=== PATIENT | female | born 1975 | race Asian ===

== ENCOUNTER 2024-12-22 22:30 | Inpatient (IN) | payer OTHER, SELFPAY ==
[2024-12-22 22:31] VITALS: BMI 17.5
[2024-12-22 22:50] VITALS: BP 118/71; PULSE 91; RESP 20; TEMP 37.1; O2SAT 99
--- NOTE | 2024-12-22 23:05 | EKG_ITS ---
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
--- NOTE | 2024-12-22 23:05 | XR_ITS ---
Examination: CT brain head without contrast. 2-D sagittal coronal reconstructions Date and time of exam:December 22, 2024 1111 hrs. Indications: Dizziness and nausea episodes beginning 2 days ago CTDI: vol (mGy):44.2 DLP: (mGycm):859 Technique: Multiple CT axial sections of the brain have been obtained, 5 mm slice thickness. Contrast has not been administered. 2-D sagittal, coronal reconstructions have been obtained Low dose protocols were performed. One or more of the following dose reduction techniques were used; automated exposure control, adjustment of the mA and/or KV according to patient size, use of iterative reconstruction technique. Findings: No significant ventricular enlargement. Intra-axial or extra-axial hemorrhage density is not seen. No mass effect or midline shift Basal cisterns are not remarkable. Fourth ventricle is midline. Cranial vault intact. Impression: Negative for acute hemorrhage, mass effect or midline shift Advise clinical correlation and follow-up accordingly
--- NOTE | 2024-12-22 23:05 | XR_ITS ---
Examination: PA lateral chest 2 views Technique: Upright PA lateral chest 2 views Exam date and time: December 22, 2024 at 1110 hrs. Indications: Chest pain today Findings: Normal heart size Lungs are clear. The osseous structures are intact Impression: No active disease
--- NOTE | 2024-12-22 23:05 | PD.EDRME ---
Rapid Medical Screening Exam RME Arrival date/time: 12/22/24 22:30 49-year-old female past medical history of anemia presents emergency department complaining of dizziness, nausea, and shortness of breath. Chief Complaint: Dizziness Time Seen by Provider: 12/22/24 22:34 Vital signs: Vital Signs Temperature 98.8 F 12/22/24 22:50 Pulse Rate 91 12/22/24 22:50 Respiratory Rate 20 12/22/24 22:50 Blood Pressure 118/71 12/22/24 22:50 Pulse Oximetry (%) 99 12/22/24 22:50 Oxygen Delivery Method Room Air 12/22/24 22:50 Vital signs reviewed by provider: Yes
[2024-12-22 23:30] LABS: Basophils # (Auto) 0.1 Thou/mm3 (0.0-0.2); Basophils % (Auto) 2 % (0-2.5); Eosinophils # (Auto) 0.1 Thou/mm3 (0.0-0.5); Eosinophils % (Auto) 1 % (0-10); Immature Granulocytes % (Auto) 0 % (0-0); Immature Granulocytes Auto 0.01 Thou/mm3 (0.00-0.00); Lymphocytes # (Auto) 1.2 Thou/mm3 (1.0-4.8); Lymphocytes % (Auto) 31 % (10-50); Mean Corpuscular HGB Conc 25.7 g/dl (31.0-37.0); Mean Corpuscular Volume 51 fL (80-100); Monocytes # (Auto) 0.4 Thou/mm3 (0.0-0.8); Monocytes % (Auto) 11 % (0-12); Neutrophils # (Auto) 2.2 Thou/mm3 (1.8-7.7); Neutrophils % (Auto) 55 % (37-80); Nucleated Red Blood Cell % 0 /100 WBC (0); Platelet Count 542 Thou/mm3 (140-440); RDW Standard Deviation 41.5 fL (36.4-46.3); Red Blood Count 4.15 Miln/mm3 (4.00-5.20)
[2024-12-22 23:43] LABS: B-Type Natriuretic Peptide 29 pg/mL (0-100); Partial Thromboplastin Time 22.2 Seconds (22.0-36.0); Prothrombin Time 11.4 Seconds (9.0-12.2)
[2024-12-22 23:44] LABS: Hemoglobin 5.4 g/dL (12.0-16.0)
[2024-12-22 23:45] LABS: Alanine Aminotransferase 7 U/L (10-49); Albumin/Globulin Ratio 1.6 (1.2-2.2); Alkaline Phosphatase 69 U/L (46-116); Anion Gap 9 (7-16); Aspartate Amino Transferase 15 U/L (0-34); BUN/Creatinine Ratio 16 Ratio (12-20); Bilirubin,Total 0.4 mg/dL (0.3-1.2); Blood Urea Nitrogen 14 mg/dL (9-23); Calcium 9.3 mg/dL (8.3-10.6); Calcium (Corrected) 9.3 mg/dL (8.5-10.1); Carbon Dioxide 25.1 mMol/L (20.0-31.0); Chloride 106 mMol/L (98-107); Creatinine (Component) 0.9 mg/dL (0.6-1.3); Globulin 3.2 gm/dL (2.3-3.5); Glucose 107 mg/dL (74-106); Magnesium 2.2 mg/dL (1.6-2.6); Osmolality,Calculated 279 (275-295); Potassium 3.7 mMol/L (3.4-5.1); Sodium 140 mMol/L (136-145); Total Protein 8.2 gm/dL (5.7-8.2); Troponin I < 0.002 ng/mL (0.0-0.045); eGFR > 60 See Note
[2024-12-23] VITALS (39 sets, daily range): BP systolic 107–139; BP diastolic 50–93; PULSE 63–90; RESP 14–25; TEMP 36.1–37.1; O2SAT 98–100; BMI 18.5
[2024-12-23 00:48] LABS: Collection Type, Urine Clean Catch; Squamous Epithelial Cell,Urine 0 /hpf (0-5)
[2024-12-23 00:51] LABS: Bilirubin,Urine Negative (Negative); Blood,Urine 3+ (Negative); Budding Yeast,Urine Present; Clarity,Urine Clear (Clear/Hazy); Color,Urine Yellow (Lt Yel-Yel); Glucose, Urine Negative (Negative); Ketones,Urine Negative (Negative); Leukocyte Esterase,Urine Negative (Negative); Nitrite,Urine Negative (Negative); Protein,Urine 1+ (Neg - Trace); RBC,Urine 371 /hpf (0-3); Specific Gravity,Urine 1.028 (1.001-1.035); WBC,Urine 9 /hpf (0-5)
--- NOTE | 2024-12-23 00:52 | PD.EDDIZZY ---
ED Dizzyness RME/HPI General Chief Complaint: Dizziness Stated Complaint: DIZZINESS AND NAUSEA X 2DAYS Time Seen by Provider: 12/22/24 22:34 Arrival date/time: 12/22/24 22:30 RME / HPI RME / HPI Narrative: 12/22/24 22:30 49-year-old female past medical history of anemia presents emergency department complaining of dizziness, nausea, and shortness of breath. Dr. Reddy?s Main ED Evaluation: 49yo female with a history of anemia, previous blood transfusions presents to the ED for a chief complaint of dizziness. Patient states she was feeling dizzy and lightheaded today, reporting she feels like this every so often since 2004 before or after her period. She denies any hematemesis, rectal bleeding, vomiting or any other associated symptoms. Denies any falls or injuries. No known allergies. Related Data Allergies Allergy/AdvReac Type Severity Reaction Status Date / Time NKA* Allergy Uncoded 03/19/17 15:30 Review of Systems Review of Systems Systems Reviewed: All systems reviewed, normal except as documented ED Exam Narrative Physical exam: GENERAL APPEARANCE: alert and oriented x 4, well-developed, well-nourished, no acute distress VITALS: All vitals were reviewed and the pulse ox is 100% on room air, which is normal according to my interpretation. HEENT: Normocephalic, atraumatic; pale conjunctiva, pupils equal, round, reactive to light; EOMI; mucous membranes pale, moist; oropharynx clear NECK: Supple LUNGS: CTABL; no wheezes, no rales, no rhonchi HEART: Regular rate, regular rhythm; normal S1, S2; no murmurs ABDOMEN: non distended; normal BS; soft, no tenderness, no guarding, no rebound; no masses, no organomegaly, no hernia BACK: no CVA tenderness EXTREMITIES: atraumatic; no edema NEUROLOGIC: awake; alert and oriented x4; cranial nerves II-XII grossly intact; no focal sensory or motor deficits PSYCHIATRIC: appropriate mood and affect SKIN: warm, dry, pallor; no rashes Course Course Course Narrative: CXR is ordered for determining the etiology of dizziness. Quality Measures none Orders Category Date Time Status Admit to Inpatient Status Routine Admission 12/23/24 02:22 Active Patient Condition Routine Admission 12/23/24 02:22 Ordered Activity as Tolerated Routine Care 12/23/24 02:22 Ordered EKG (ED ONLY) *Do not use* NOW Care 12/22/24 23:05 Completed Notify provider NEEDED Care 12/23/24 02:22 Active Obtain weight X1 Care 12/23/24 02:22 Active Sequential Compression Device QSHIFT Care 12/23/24 02:22 Active Vital Signs, Non-Routine Q4H Care 12/23/24 02:30 Ordered Vital Signs, Non-Routine Q4H Care 12/23/24 06:30 Ordered Vital Signs, Non-Routine Q4H Care 12/23/24 10:30 Ordered Vital Signs, Non-Routine Q4H Care 12/23/24 14:30 Ordered Vital Signs, Non-Routine Q4H Care 12/23/24 18:30 Ordered Vital Signs, Non-Routine Q4H Care 12/23/24 22:30 Ordered Consult to Obstetrics Stat Cons 12/23/24 02:25 Ordered Diet Regular Diet 12/23/[address] head/brain wo con Stat Exams 12/22/24 23:05 Completed EKG (ED Only) Stat Exams 12/22/24 23:05 Draft US pelvic complete Stat Exams 12/23/24 02:26 Ordered XR chest 2V Stat Exams 12/22/24 23:05 Completed A1C [Glycohemoglobin w (eAG)] AM DRAW Lab 12/23/24 05:00 Ordered B-Type Natriuretic Peptide Stat Lab 12/22/24 23:22 Completed Beta HCG,Quantitative AM DRAW Lab 12/23/24 05:00 Ordered CBC AM DRAW Lab 12/23/24 05:00 Ordered CBC AM DRAW Lab 12/24/24 05:00 Ordered CBC AM DRAW Lab 12/25/24 05:00 Ordered CBC Stat Lab 12/22/24 23:22 Completed Comprehensive Metabolic Panel AM DRAW Lab 12/23/24 05:00 Ordered Comprehensive Metabolic Panel AM DRAW Lab 12/24/24 05:00 Ordered Comprehensive Metabolic Panel AM DRAW Lab 12/25/24 05:00 Ordered Comprehensive Metabolic Panel Stat Lab 12/22/24 23:22 Completed Drug Screen,Urine Stat Lab 12/23/24 00:02 Completed Hgb and Hct Post-Transfusion Routine Lab 12/23/24 02:24 Ordered Lipid Panel AM DRAW Lab 12/23/24 05:00 Ordered Magnesium AM DRAW Lab 12/23/24 05:00 Ordered Magnesium Stat Lab 12/22/24 23:22 Completed Partial Thromboplastin Time AM DRAW Lab 12/24/24 05:00 Ordered Partial Thromboplastin Time Stat Lab 12/22/24 23:22 Completed Phosphorous AM DRAW Lab 12/23/24 05:00 Ordered Prothrombin Time with INR AM DRAW Lab 12/24/24 05:00 Ordered Prothrombin Time with INR Stat Lab 12/22/24 23:22 Completed Thyroid Stimulating Hormone AM DRAW Lab 12/23/24 05:00 Ordered Troponin I Stat Lab 12/22/24 23:22 Completed Type and Screen Stat Lab 12/23/24 01:00 Results Urinalysis Stat Lab 12/23/24 00:02 Completed rbc [Red Blood Cells] Stat Lab 12/23/24 01:00 Results Acetaminophen Tab [Tylenol Tab] Med 12/23/24 02:22 Active 650 mg PO Q6H PRN Meclizine HCl [Antivert] Med 12/23/24 01:13 Discontinued 25 mg PO X1 ONE Ondansetron Inj [Zofran Inj] Med 12/23/24 02:22 Active 4 mg IV Q6H PRN Pantoprazole [Protonix] Med 12/23/24 09:00 Active 40 mg PO QDAY Code Status Routine Oth 12/23/24 02:22 Ordered Vital Signs Vital signs: Vital Signs Temperature 98.8 F 12/22/24 22:50 Pulse Rate 91 12/22/24 22:50 Respiratory Rate 20 12/22/24 22:50 Blood Pressure 118/71 12/22/24 22:50 Pulse Oximetry (%) 99 12/22/24 22:50 Oxygen Delivery Method Room Air 12/22/24 22:50 Dizziness MDM Narrative MDM Narrative:: Scribe Attestation: 12/23/24 - Litzy, Jalyn Horton am scribing for and in the presence of Dr. Reddy. 0118: Discussed case with [Dr. Lynch, attending Dr. Bass] from Hospitalist service regarding admission. Discussed patients ED course, exam findings, labs, and radiology results. The Hospitalist will come and evaluate the patient. 0205: The hospitalist requests OB to admit the patient. 0209: Discussed case with Dr. Frank from [facility] regarding consultation. Discussed patients ED course, exam findings, labs, and radiology results. States to admit the patient to the hospitalist and she will consult. As of 225, OB and the Hospitalist service are attempting to figure out who will admit the patient. 0236: Dr. Bass accepts the patient for admission. Patient data External records reviewed:: [facility] previous records (Per chart review, patient has no previous ED visits or admissions to this facility.) Clinical information provided by:: patient Social determinants that could affect healthcare access:: none Patient has the following chronic illnesses:: anemia How is presenting disease/condition affected by chronic disease/condition?: caused by Evaluation data The following diagnostics were reviewed and interpreted by me:: lab results Lab and/or radiology exams considered but not ordered:: none Interpretation Summary: WBC count is normal, HnH is low at 5.4/21.0, Platelets are 542, PT and INR are normal, PTT is normal, CMP is normal, UDS is negative, according to my interpretation. EKG done at 2327, NSR, rate of 80, normal axis, inverted T-waves in V1 and V2, no STEMI, according to my interpretation. --------- [place] [facility] Report Signed Patient: ILSA LOTT Record#: [id number] Birthdate: 1975 Age/Sex: 49 / F Location: [facility] Attending Dr: Ordering Physician: Villa Romano (FNP) Date of Service: 12/22/24 Procedure(s): XR chest 2V Accession Number(s): [id number] cc: Will Castaneda MD; Temporary Provider,ED ; Villa Romano (FNP)~ Examination: PA lateral chest 2 views Technique: Upright PA lateral chest 2 views Exam date and time: December 22, 2024 at 1110 hrs. Indications: Chest pain today Findings: Normal heart size Lungs are clear. The osseous structures are intact Impression: No active disease Dictated By: Will Castaneda MD Signed By: <Electronically signed by Will Castaneda MD in OV> 12/22/24 2359 [facility] Signed Patient: ILSA LOTT Record#: [id number] Birthdate: 1975 Age/Sex: 49 / F Location: [facility] Attending Dr: Ordering Physician: Kalyani GROSS)Villa Date of Service: 12/22/24 Procedure(s): CT head/brain wo con Accession Number(s): [id number] cc: Will Castaneda MD; Temporary Provider,ED ; Kalyani Persaud ([employer]INEER[employer] INSPECTION ASSISTANT),Villa WEBER~ Examination: CT brain head without contrast. 2-D sagittal coronal reconstructions Date and time of exam:December 22, 2024 1111 hrs. Indications: Dizziness and nausea episodes beginning 2 days ago CTDI: vol (mGy):44.2 DLP: (mGycm):859 Technique: Multiple CT axial sections of the brain have been obtained, 5 mm slice thickness. Contrast has not been administered. 2-D sagittal, coronal reconstructions have been obtained Low dose protocols were performed. One or more of the following dose reduction techniques were used; automated exposure control, adjustment of the mA and/or KV according to patient size, use of iterative reconstruction technique. Findings: No significant ventricular enlargement. Intra-axial or extra-axial hemorrhage density is not seen. No mass effect or midline shift Basal cisterns are not remarkable. Fourth ventricle is midline. Cranial vault intact. Impression: Negative for acute hemorrhage, mass effect or midline shift Advise clinical correlation and follow-up accordingly Dictated By: Will Castaneda MD Signed By: <Electronically signed by Will Castaneda MD in OV> 12/22/24 6550 Medications / Prescriptions Medications or Prescriptions considered but not ordered:: none Medication administrations:: Medication Administration History Acetaminophen (Acetaminophen 325 Mg Tablet) 650 mg PO Q6H PRN PRN Reason: Fever >100 or pain 1-3 Stop: 01/22/25 02:21 Ondansetron HCl (Ondansetron Inj 2 Mg/Ml Inj 2 Ml) 4 mg IV Q6H PRN; Protocol PRN Reason: NAUSEA OR VOMITING Stop: 01/22/25 02:21 Pantoprazole Sodium (Pantoprazole 40 Mg Tablet) 40 mg PO QDAY KELBY Stop: 01/22/25 08:59 Discontinued Medications Meclizine HCl (Meclizine Hcl 25 Mg Tablet) 25 mg PO X1 ONE Stop: 12/23/24 01:14 Last Admin: 12/23/24 01:17 Dose: Not Given Documented By: TC Non-Admin Reason: Discontinued PRBCs ordered. Consultations Consultation(s) initiated? (list below): Yes Consultation #1 (Physician, Specialty, Details): See MDM narrative. Diagnosis Dizziness Differential Diagnosis: other (iron deficiency anemia, hemolytic anemia, hemorrhage anemia, sideroblastic anemia) Most likely diagnosis given after review of the tests above:: symptomatic anemia Admission Indicated Admission indicated?: indicated Admission Request Was there a request for admission?: Yes Admission Attestation Admission request attestation: Discussed case with [] from Hospitalist service regarding admission. Discussed patients ED course, exam findings, labs, and radiology results. The Hospitalist [agrees,declines] to accept the patient for admission. Disposition Plan Disposition Plan: Admit Discharge Plan Plan Patient Disposition: Admit Acute Care w/in Hospital Prescriptions/Referrals Referrals: No Primary/Family,Physician [Primary Care Provider] - In 1 week Problem List Clinical Impression: Symptomatic anemia Patient/Caregiver Discharge Instructions Print Language: Khmer Stand Alone Forms: [facility] Award Info., Patient Portal Info Letter
[2024-12-23 01:00] LABS: Amphetamine/Methamp Scrn,U Negative (Negative); Barbiturate Screen,Urine Negative (Negative); Benzodiazepines Screen,Urine Negative (Negative); Benzoylecgonine Screen, Ur Negative (Negative); Fentanyl Screen,Urine Negative (Negative); Opiate Screen,Urine Negative (Negative); THC Screen,Urine Negative (Negative)
--- NOTE | 2024-12-23 02:26 | XR_ITS ---
Examination: Pelvic ultrasound, transabdominal, complete Technique: Transabdominal ultrasound of the pelvis performed using grayscale imaging Date and time of exam: December 23, 2024 1123 hours INDICATIONS: Vaginal bleeding beginning 3 days ago, patient is anemic requiring blood transfusions FINDINGS: Uterus 12.4 cm endometrium 1.0 cm No uterine mass Right ovary 3.7 cm arterial flow Left ovary removed 2006 IMPRESSION: Diffusely enlarged uterus but no discrete uterine mass
--- NOTE | 2024-12-23 02:28 | ESHP_ITS ---
Documentation for date of: 12/23/24 HPI History of Present Illness History of present illness: Camilo is a 49 y/o female with PMHx of prediabetes, chronic anemia, menorrhagia who comes in evaluation of dizziness, generalized weakness, fatigue. 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 She felt like she was going to pass out, however did not pass out or fall. She started to feel clammy and diaphoretic decided that she needed to get further evaluated. She is felt like this before. She also says that she is currently is on her period in which they last for about 7 days, she goes through about 5 pads a day, and she says she usually passes up blood chunks and clots up till day 3. She currently has used 2 pads today, and says that she is on day 3 of her period. She also says that when she is on her period she does feel similar symptoms to these. She says she does not go to doctors including PCP or an SECURITY ALARM INSTALLER. She says she has good oral intake, and cooks all her meals at home. She denies any recent weight loss. She says that she has been having heavy periods since her teenage years. She denies taking any aspirin, ibuprofen or naproxen and has not taken any ibuprofen in 6 months. She denies having any chest pain, shortness of breath, nausea, vomiting. She says her bowel movements are regular and the last bowel movement she had was brown/green color and it was not black. She denies any recent travel, or sick contacts. She has not gotten blood transfusions before. She says that she has had chronic anemia for a long time. She has not been hospitalized before. Pt denies seeing blood in her urine. She is wondering when she is going to go home. She also denies seeing blood in her urine. She has no other complaints at this time. ED course: She arrived to the ED with a temperature of 98.8, heart rate of 91, respiratory of 20, blood pressure 118/71, saturating 99% on room air. She came in with a white count of 4, hemoglobin 5.4, hematocrit of 21, platelets of 542, sodium of 140, potassium 3.7, bicarb of 25, BUN/creatinine 14 and 0.9 respectively, magnesium 2.2, troponin negative x 1, ALT 15 and 7 respectively, coag panel negative. UA showed 371 RBCs, +3 blood, 9 white cells, budding yeast. U tox was negative. 2 PRBCs were ordered. Medicine was consulted and patient was admitted to the floors Past medical history: As above Surgical history: (says she had a cyst before on her ovary, and is still there) Allergies: Aspirin gets hives Medicines: Does not take any medicines Family history: History of hypertension, diabetes, stroke, father of stroke around age 60s, mother of heart attack a couple years ago. Brother of lung cancer. Social history: Born in [facility], came here in 1983. 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 Has boyfriend, has kids as well. Cooks all her meals at home which include chicken fish and red meat. She does not exercise much. No smoking history, has never been a heavy drinker, no oral or IV drug use. Does not take aspirin, NSAIDs. Takes Tums for acid reflux occasionally Review of Systems Review of Systems Narrative Review of Systems: Constitutional: No fever, chills, positive fatigue, positive weakness, no weight loss HEENT: No eye pain, vision loss, ear pain, hearing loss, dysphagia, Cardiovascular: No chest pain, palpitations, edema, pain with walking Respiratory: No cough, shortness of breath, wheezing GI: No NVD, abdominal pain, constipation, blood in stool, loss of appetite, heartburn Extremities: No presence of pitting edema MSK: No back pain, joint pain, joint swelling Neuro: Positive dizziness, no numbness, headaches, seizures, tremors, no syncope Psych: No anxiety, depression Exam Vital Signs Temp Pulse Resp BP Pulse Ox O2 Del Method 98.6 F 90 17 119/80 100 Room Air 12/23/24 02:19 12/23/24 02:19 12/23/24 02:19 12/23/24 02:19 12/23/24 02:19 12/23/24 02:19 Narrative Exam General: AAOx3, NAD, anorexic female, pleasant HEENT: Moist mucous membranes, conjunctiva pale bilaterally, EOMI, PERRLA, Cardiovascular: S1, S2, radial pulses +2 bilat, RRR Pulmonary: CTAB bilat no cough, no wheezing GI: No tenderness to light or deep palpitation, no guarding, rigidity, rebound tenderness or distension Extremities: No presence of trace or pitting edema in lower extremities bilaterally, dorsalis pedis pulses +2 bilaterally, cap refill less than 2 Neuro: AAOx3, no focal motor or sensory deficits in the UE or LE bilat Psych: Good judgement, thought and behavior. Cooperative Results: Labs 12/22/24 23:22 12/22/24 23:22 Labs: Short CBC 12/22/24 Range/Units 23:22 WBC 4.0 (3.6-11.0) Thou/mm3 Hgb 5.4 L* (12.0-16.0) g/dL Hct 21.0 L* (36.0-46.0) % Plt Count 542 H (140-440) Thou/mm3 BMP 12/22/24 23:22 Sodium 140 Potassium 3.7 Chloride 106 Carbon Dioxide 25.1 BUN 14 Creatinine 0.9 Glucose 107 H Calcium 9.3 Cardiac Enzymes 12/22/24 Range/Units 23:22 Troponin I < 0.002 (0.0-0.045) ng/mL Liver Function 12/22/24 Range/Units 23:22 Total Bilirubin 0.4 (0.3-1.2) mg/dL AST 15 (0-34) U/L ALT 7 L (10-49) U/L Alkaline Phosphatase 69 (46-116) U/L Albumin 5.0 (3.5-5.0) gm/dL Urine 12/23/24 Range/Units 00:02 Urine Color Yellow (Lt Yel-Yel) Urine Clarity Clear (Clear/Hazy) Urine pH 6.0 (5.0-7.0) Ur Specific [place] 1.028 (1.001-1.035) Urine Protein 1+ A (Neg - Trace) Urine Glucose (UA) Negative (Negative) Quality Measures Quality Measures none Medications Home Medications and Allergies Allergies Allergy/AdvReac Type Severity Reaction Status Date / Time NKA* Allergy Uncoded 03/19/17 15:30 Visit Medications Discontinued Medications Meclizine HCl (Meclizine Hcl 25 Mg Tablet) 25 mg PO X1 ONE Stop: 12/23/24 01:14 Last Admin: 12/23/24 01:17 Dose: Not Given Assessment & Plan Plan Assessment Camilo is a 49 y/o female with PMHx of prediabetes, chronic anemia, menorrhagia who is admitted for acute blood loss anemia secondary to menorrhagia. #Symptomatic anemia #Acute blood loss anemia #Chronic microcytic anemia secondary to #Chronic menorrhagia #Hematuria Anemia microcytic in nature, Hgb 5.4, MCV 51 Patient not having hemoptysis, blood in stool Source of bleeding at this time is periods, likely as patient has chronic menorrhagia Patient to get 2 PRBCs now Patient will need further workup for menorrhagia from SECURITY ALARM INSTALLER +3 Blood and RBCs seen in UA, however pt denies having blood in urine Pt is currently on menstrual cycle Plan: ? SECURITY ALARM INSTALLER consulted, appreciate recs ? Ordered additional 1 PRBC ? Follow-up posttransfusion H&H ? PBS ? Iron panel ? Avoid NSAIDs including ibuprofen, aspirin ? Protonix ? SCDs ? Beta-hCG #History of prediabetes Plan: ? Follow-up A1c, TSH and lipid panel #Health Maintenance Disposition: [facility] DVT prophylaxis: SCDs GI prophylaxis: Protonix Diet: Regular CODE STATUS: Full Patient seen and care discussed with my attending physician, Dr. Kali Cottrell, PGY-1 Attending Provider Attestation/Addendum I attest that I was physically present for the evaluation, physical examination, lab and imaging review of the patient with the residents. I discussed the case with the residents and agree with the findings and plans of care as documented above. Patient is a 49 years old female with past medical history of prediabetes, menorrhagia and chronic anemia who presented to the ED with complaint of dizziness and generalized weakness. 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 Patient has always had heavy bleeding during her menstruation since her teenage. She had seen SECURITY ALARM INSTALLER previously and was advised to take OCPs, which she refused as she did not need control. Her last SECURITY ALARM INSTALLER visit was more than 15 years back. She denies trauma, rectal bleeding, black tarry stool, bloody vomit or obvious bleeding from any other source except for her ongoing menstruation. She also denied taking any anticoagulants or antiplatelets. In the ED, patient was found to have normal vitals. Her hemoglobin was 5.4 with hematocrit 21, MCV 51. Urinalysis showed 3+ blood and 371 RBCs but most likely contamination from ongoing vaginal bleed. Head CT was done which is negative for acute hemorrhage, mass effect or midline shift. Chest x-ray did not show any active disease. EKG shows sinus rhythm. SECURITY ALARM INSTALLER was consulted by ED, recommended admission for further evaluation and management. Patient was also ordered 2 units of PRBC by the ED. We will admit the patient for management of acute symptomatic anemia likely secondary to blood loss from chronic menorrhagia. We will obtain posttransfusion H&H, ordered 1 more unit of PRBC, iron panel, folate, beta-hCG, vitamin B12 level. Will start her on oral Protonix. We will also obtain hemoglobin A1c level for her prediabetes. Myriam Bass MD
[2024-12-23 04:14] LABS: Path Review Blood Smear Sent to Pathologist
[2024-12-23 05:33] LABS: Basophils % (Auto) 1 % (0-2.5); Eosinophils # (Auto) 0.1 Thou/mm3 (0.0-0.5); Eosinophils % (Auto) 1 % (0-10); Immature Granulocytes % (Auto) 0 % (0-0); Immature Granulocytes Auto 0.01 Thou/mm3 (0.00-0.00); Lymphocytes # (Auto) 2.1 Thou/mm3 (1.0-4.8); Lymphocytes % (Auto) 43 % (10-50); Mean Corpuscular HGB Conc 26.2 g/dl (31.0-37.0); Mean Corpuscular Hemoglobin 13.7 pg (25.0-35.0); Mean Corpuscular Volume 52 fL (80-100); Monocytes # (Auto) 0.4 Thou/mm3 (0.0-0.8); Monocytes % (Auto) 8 % (0-12); Neutrophils # (Auto) 2.3 Thou/mm3 (1.8-7.7); Neutrophils % (Auto) 48 % (37-80); Nucleated Red Blood Cell % 0 /100 WBC (0); Platelet Count 462 Thou/mm3 (140-440); RDW Standard Deviation 42.4 fL (36.4-46.3); Red Blood Count 3.94 Miln/mm3 (4.00-5.20); White Blood Count 4.8 Thou/mm3 (3.6-11.0)
[2024-12-23 05:54] LABS: Folate 18.09 ng/mL (>5.38); Vitamin B12 439 pg/mL (211-911)
[2024-12-23 05:59] LABS: Hematocrit 20.6 % (36.0-46.0); Hemoglobin 5.4 g/dL (12.0-16.0)
[2024-12-23 06:11] LABS: Alanine Aminotransferase < 7 U/L (10-49); Albumin, Serum 4.3 gm/dL (3.5-5.0); Albumin/Globulin Ratio 1.5 (1.2-2.2); Alkaline Phosphatase 56 U/L (46-116); Anion Gap 10 (7-16); Aspartate Amino Transferase 13 U/L (0-34); BUN/Creatinine Ratio 19 Ratio (12-20); Beta HCG,Quantitative 1 mIU/mL (<5.0); Bilirubin,Total 0.5 mg/dL (0.3-1.2); Blood Urea Nitrogen 13 mg/dL (9-23); Calcium 8.8 mg/dL (8.3-10.6); Calcium (Corrected) 8.8 mg/dL (8.5-10.1); Carbon Dioxide 23.3 mMol/L (20.0-31.0); Cardiac Risk Estimate 3.1 RATIO (3.7-5.6); Chloride 107 mMol/L (98-107); Cholesterol 136 mg/dL (132-200); Creatinine (Component) 0.7 mg/dL (0.6-1.3); Estimated Creatinine Clearance 73.6 mL/min (>60); Globulin 2.9 gm/dL (2.3-3.5); Glucose 100 mg/dL (74-106); HDL Cholesterol 44 mg/dL (40-60); LDL Cholesterol,Calculated 77 mg/dL (0-130); Magnesium 2.2 mg/dL (1.6-2.6); Osmolality,Calculated 279 (275-295); Phosphorous 3.7 mg/dL (2.4-5.1); Potassium 3.9 mMol/L (3.4-5.1); Sodium 140 mMol/L (136-145); Thyroid Stimulating Hormone 2.74 uIU/mL (0.55-4.78); Total Protein 7.2 gm/dL (5.7-8.2); Triglycerides 77 mg/dL (30-150); eGFR > 60 See Note
--- NOTE | 2024-12-23 08:09 | ESCONSULT_ITS ---
RESEARCH ANIMAL ATTENDANT HPI Data of Consult Requesting Physician: Myriam Bass MD Primary Care Provider: Physician No Primary/Family Consult Narrative History of present illness: Camilo is a 49yo with PMHx of prediabetes, chronic anemia, and menorrhagia who presented to ER overnight for dizziness, generalized weakness, and fatigue. 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 She felt like she was going to faint. She started to feel clammy and diaphoretic. She is day 4 of her menses today and notes that it is tapering. She has a history of menorrhagia, has never had it treated. Last saw an OBGYN a few years ago at which point pap and pelvic ultrasound were performed. Her periods occur monthly and last 7 days, first 4 days are very heavy to the point that she will soak through a heavy pad within 30 to 60 minutes. She has flooding episodes. Passes clots and what appears to her to be tissue. Last mammogram 10 years ago(?), has not yet had a colonoscopy. ED course: She arrived to the ED with a temperature of 98.8, heart rate of 91, respiratory of 20, blood pressure 118/71, saturating 99% on room air. She came in with a white count of 4, hemoglobin 5.4, hematocrit of 21, platelets of 542, sodium of 140, potassium 3.7, bicarb of 25, BUN/creatinine 14 and 0.9 respectively, magnesium 2.2, troponin negative x 1, ALT 15 and 7 respectively, coag panel negative. UA showed 371 RBCs, +3 blood, 9 white cells, budding yeast. U tox was negative. 2 pRBCs were ordered. She was admitted by Internal Medicine team for blood transfusion. Past medical history: As above Surgical history: x1 at which time a left ovarian cyst was removed, D&C x1 for ETOP Allergies: Aspirin (hives) Medicines: Does not take any medicines Family history: History of hypertension, diabetes, stroke, father of stroke in his 60s, mother of [place] a couple years ago. Brother of lung cancer. Social history: Born in [facility], came here in 1983. 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 Has boyfriend, has kids as well. Cooks all her meals at home which include chicken fish and red meat. She notes that she has to eat 5 meals a day to avoid being underweight- this is not a recent phenomenon, has always been thin. No smoking history, has never been a heavy drinker, no oral or IV drug use. Does not take aspirin, NSAIDs. cc:: cc: Myriam Bass MD Review of Systems Review of Systems Narrative Review of Systems: Review of Systems Systems Reviewed: All systems reviewed, normal except as documented Constitutional Constitutional: Denies body ache(s), Denies chills, Denies fever(s) and Denies headache(s) ENT Ears, Nose, Mouth, and Throat: Denies headache(s) and Denies vertigo Cardiovascular Cardiovascular: Denies chest pain, Denies palpitations, Denies dyspnea and Denies syncope Respiratory Respiratory: Denies cough, Denies dyspnea Gastrointestinal Gastrointestinal: Denies nausea and Denies vomiting Neurologic Neurologic: Denies convulsions, Denies headache(s), Denies other visual disturbances, Denies syncope and Denies vertigo Meds Home Medications and Allergies Allergies Allergy/AdvReac Type Severity Reaction Status Date / Time No Known Allergies Allergy Unverified 12/23/24 08:33 Exam - RESEARCH ANIMAL ATTENDANT Vital Signs Temp Pulse Resp BP Pulse Ox O2 Del Method 98.1 F 81 16 116/74 99 Room Air 12/23/24 07:35 12/23/24 07:35 12/23/24 07:35 12/23/24 07:35 12/23/24 07:35 12/23/24 07:35 Narrative Exam General: well developed, well nourished, no acute distress, conversant Cardiac: normal heart rate Lungs: breathing without distress Abdomen: soft, non-distended, non-tender, no rebound or guarding, uterus is within the pelvis and not grossly enlarged Extremities: no pain with palpation of calves, no BLE edema RESEARCH ANIMAL ATTENDANT - Results Labs 12/23/24 04:19 12/23/24 04:19 Labs: Short CBC 12/22/24 12/23/24 Range/Units 23:22 04:19 WBC 4.0 4.8 (3.6-11.0) Thou/mm3 Hgb 5.4 L* 5.4 L* (12.0-16.0) g/dL Hct 21.0 L* 20.6 L* (36.0-46.0) % Plt Count 542 H 462 H D (140-440) Thou/mm3 BMP 12/22/24 12/23/24 23:22 04:19 Sodium 140 140 Potassium 3.7 3.9 Chloride 106 107 Carbon Dioxide 25.1 23.3 BUN 14 13 Creatinine 0.9 0.7 Glucose 107 H 100 Calcium 9.3 8.8 Cardiac Enzymes 12/22/24 Range/Units 23:22 Troponin I < 0.002 (0.0-0.045) ng/mL Liver Function 12/22/24 12/23/24 Range/Units 23:22 04:19 Total Bilirubin 0.4 0.5 (0.3-1.2) mg/dL AST 15 13 (0-34) U/L ALT 7 L < 7 L (10-49) U/L Alkaline Phosphatase 69 56 (46-116) U/L Albumin 5.0 4.3 D (3.5-5.0) gm/dL Urine 12/23/24 Range/Units 00:02 Urine Color Yellow (Lt Yel-Yel) Urine Clarity Clear (Clear/Hazy) Urine pH 6.0 (5.0-7.0) Ur Specific Elizabeth 1.028 (1.001-1.035) Urine Protein 1+ A (Neg - Trace) Urine Glucose (UA) Negative (Negative) Assessment and Plan Assessment and plan (1) Perimenopausal menorrhagia: Status: Acute Assessment and plan: Camilo is a 49yo with severe anemia (Hgb 5.4) related to chronic menorrhagia, currently day 4 of menses which is already tapering as usual. She has just finished 3rd unit of pRBCs, post-transfusion Hgb to be drawn. Initially had mild tachycardia, now normal pulse and bp always normotensive. Thyroid testing normal. Pelvic ultrasound very recently performed, report pending but images reviewed- EMS 0.97cm (wnl). Recommendations: -Awaiting pelvic ultrasound report but reviewed images overall normal (uterus slightly enlarged but normal endometrial stripe thickness). -Transfuse to Hgb >7 -I had a long conversation with Camilo regarding the importance of timely follow up with OBGYN in the next 4 weeks to have an endometrial biopsy performed to rule out endometrial hyperplasia/neoplasia. We discussed that the options to treat her chronic menorrhagia include: OCPs, Mirena IUD, endometrial ablation and hysterectomy. In the meantime, while she is establishing with OBGYN and finishing workup, Rx to her pharmacy tranexamic acid 1300mg PO TID for the first 5 days of each upcoming menses to decrease menstrual flow. I also sent to her pharmacy ferrous sulfate 325mg PO BID and colace for bowel regimen. We discussed importance of eating iron-rich foods. Print list from [employer] to aid with grocery shopping and meal choices. -We discussed importance of obtaining updated pap, mammogram and colonoscopy as well -Answered all questions to her apparent satisfaction (2) Symptomatic anemia: Status: Acute
[2024-12-23] MEDS: PANTOPRAZOLE 40 MG TABLET PO (08:24)
--- NOTE | 2024-12-23 08:42 | ESPR_ITS ---
<Statement entered by Dayron Dillon MD - 12/23/24 13:27> Patient was seen and examined at the bedside. Patient is overnight admitted for acute blood loss anemia. Patient reported that since her childhood she had heavy menstrual bleeding/menorrhagia. She reported that she soaks at least 5 pads during her first 3 days of menstrual cycle. Patient presented with hemoglobin of 5.4. Patient was receiving blood transfusion. Night residents ordered iron panel and pelvic ultrasound. TOBACCO WAREHOUSE MANAGER has been consulted for further recommendations. Will follow with post H&H. Kidney functions remained stable. White count remained stable. Patient was explained that we will investigate the cause for her menorrhagia. Patient's MCV appears to be low therefore was recommended to have workup with PCP as outpatient for thalassemia trait or von Willebrand disease. Patient does have a family history in her siblings for chronic bleeding/menorrhagia. All labs and orders were reviewed. I saw and examined the patient, and I agree with current management stated by Dr Champ MD,PGY1. Plan of care was discussed with the attending physician and resident physician. Disclaimer: Despite multiple revisions, due to the dictation software being used, the document bellow may not be free of grammatical errors including phonetic/typographic errors. However, this does not deter from our commitment to providing health care in the patient's best interest in mind. Dr. Wilma MD, PGY 2 Documentation for date of: 12/23/24 Subjective Subjective Interval history: Patient is an overnight admit. Patient seen and examined at bedside this morning. Currently saturating above 95% on room air. Patient denies any shortness of breath, dizziness or abdominal pain. Patient states that she has always had very heavy menstrual cycle since she started menstruating the age of 12. Patient states she just never discussed it with her TOBACCO WAREHOUSE MANAGER which she would only see during visits. Patient states in her culture she was told that even if she has heavy menstrual cycle it is a sign of removing toxins from the body therefore she never told anyone about how heavy her menstrual cycles are. Patient denies ever any episodes of breakthrough bleedings. Patient states it has very rare that her cycle is so heavy that she feels dizzy and this was the first time. Patient's hemoglobin was below 6 therefore received 3 units of PRBCs. Patient has no other complaints. Exam Vital Signs Temp Pulse Resp BP Pulse Ox O2 Del Method 98.1 F 81 16 116/74 99 Room Air 12/23/24 07:35 12/23/24 07:35 12/23/24 07:35 12/23/24 07:35 12/23/24 07:35 12/23/24 07:35 Narrative Exam GENERAL: A&Ox3 . Awake, Not in acute distress NEURO: no focal neurological deficits HEENT: Atraumatic, Normocephalic. mucous membranes moist. Eyes open, symmetrical, & clear HEART: Normal Heart Sounds LUNGS: Clear to auscultation with no wheezing or crackles. ABDOMEN: soft, non-distended, non-tender, bowel sounds heard, no guarding or rebound tenderness SKIN: No Rash or ecchymoses EXTREMITIES: No edema, tenderness, able to move all 4 extremities, pedal pulses palpated Objective Labs 12/24/24 04:40 12/24/24 04:40 Labs: Laboratory Results - last 24 hr 12/22/24 12/23/24 12/23/24 23:22 00:02 01:00 WBC 4.0 RBC 4.15 Hgb 5.4 L* Hct 21.0 L* MCV 51 L MCH 13.0 L MCHC 25.7 L RDW Std Deviation 41.5 Plt Count 542 H Neut % (Auto) 55 Lymph % (Auto) 31 [place] % (Auto) 11 Eos % (Auto) 1 Baso % (Auto) 2 Neut # (Auto) 2.2 Lymph # (Auto) 1.2 [place] # (Auto) 0.4 Eos # (Auto) 0.1 Baso # (Auto) 0.1 Immature Gran # (Auto) 0.01 H Absolute Nucleated RBC 0.00 Immature Gran % 0 Nucleated RBC % 0 Smear Path Review Sent to Pathologist PT 11.4 INR 1.0 APTT 22.2 Sodium 140 Potassium 3.7 Chloride 106 Carbon Dioxide 25.1 Anion Gap 9 BUN 14 Creatinine 0.9 Estim Creat Clear Calc 54.0 L eGFR > 60 BUN/Creatinine Ratio [address] Glu mg/dL Hemoglobin A1c Calculated Osmolality 279 Calcium 9.3 Corrected Calcium 9.3 Phosphorus Magnesium 2.2 Total Bilirubin 0.4 AST 15 ALT 7 L Alkaline Phosphatase 69 Troponin I < 0.002 B-Natriuretic Peptide 29 Total Protein 8.2 Albumin 5.0 Globulin 3.2 Albumin/Globulin Ratio 1.6 Triglycerides Cholesterol LDL Cholesterol, Calc HDL Cholesterol Cholesterol/HDL Ratio Vitamin B12 Folate TSH Beta HCG, Quant Ur Collection Type Clean Catch Urine Color Yellow Urine Clarity Clear Urine pH 6.0 Ur Specific Mitchell 1.028 Urine Protein 1+ A Urine Glucose (UA) Negative Urine Ketones Negative Urine Blood 3+ A Urine Nitrite Negative Urine Bilirubin Negative Urine Urobilinogen (Auto) 3.0 Ur Leukocyte Esterase Negative Urine RBC 371 H Urine WBC 9 H Ur Squamous Epith Cells 0 Urine Bacteria None Urine Yeast (Budding) Present A Urine Opiates Screen Negative Urine Fentanyl Screen Negative Ur Barbiturates Screen Negative U Amphetamin/Meth Scrn Negative U Benzodiazepines Scrn Negative U Cocaine Metab Screen Negative U Marijuana (THC) Screen Negative Blood Type O Positive Antibody Screen NEGATIVE Crossmatch See Detail Blood Bank Wristband ID Yes 12/23/24 04:19 WBC 4.8 RBC 3.94 L Hgb 5.4 L* Hct 20.6 L* MCV 52 L MCH 13.7 L MCHC 26.2 L RDW Std Deviation 42.4 Plt Count 462 H D Neut % (Auto) 48 Lymph % (Auto) 43 [place] % (Auto) 8 Eos % (Auto) 1 Baso % (Auto) 1 Neut # (Auto) 2.3 Lymph # (Auto) 2.1 [place] # (Auto) 0.4 Eos # (Auto) 0.1 Baso # (Auto) 0.0 Immature Gran # (Auto) 0.01 H Absolute Nucleated RBC 0.00 Immature Gran % 0 Nucleated RBC % 0 Smear Path Review PT INR APTT Sodium 140 Potassium 3.9 Chloride 107 Carbon Dioxide 23.3 Anion Gap 10 BUN 13 Creatinine 0.7 Estim Creat Clear Calc 73.6 eGFR > 60 BUN/Creatinine Ratio [address] Glu mg/dL Cancelled Hemoglobin A1c Cancelled Calculated Osmolality 279 Calcium 8.8 Corrected Calcium 8.8 Phosphorus 3.7 Magnesium 2.2 Total Bilirubin 0.5 AST 13 ALT < 7 L Alkaline Phosphatase 56 Troponin I B-Natriuretic Peptide Total Protein 7.2 Albumin 4.3 D Globulin 2.9 Albumin/Globulin Ratio 1.5 Triglycerides 77 Cholesterol 136 LDL Cholesterol, Calc 77 HDL Cholesterol 44 Cholesterol/HDL Ratio 3.1 L Vitamin B12 439 Folate 18.09 TSH 2.74 Beta HCG, Quant 1 Ur Collection Type Urine Color Urine Clarity Urine pH Ur Specific Mitchell Urine Protein Urine Glucose (UA) Urine Ketones Urine Blood Urine Nitrite Urine Bilirubin Urine Urobilinogen (Auto) Ur Leukocyte Esterase Urine RBC Urine WBC Ur Squamous Epith Cells Urine Bacteria Urine Yeast (Budding) Urine Opiates Screen Urine Fentanyl Screen Ur Barbiturates Screen U Amphetamin/Meth Scrn U Benzodiazepines Scrn U Cocaine Metab Screen U Marijuana (THC) Screen Blood Type Antibody Screen Crossmatch Blood Bank Wristband ID Quality Measures Quality Measures none Assessment & Plan Assessment Current Active Medications: Generic Name Dose Route Start Last Admin Trade Name Freq PRN Reason Stop Dose Admin Acetaminophen 650 mg 12/23/24 02:22 Acetaminophen 325 Mg Tablet PO 01/22/25 02:21 Q6H PRN Fever >100 or pain 1-3 Ondansetron HCl 4 mg 12/23/24 02:22 Ondansetron Inj 2 Mg/Ml Inj 2 Ml IV 01/22/25 02:21 Q6H PRN NAUSEA OR VOMITING Protocol Pantoprazole Sodium 40 mg 12/23/24 09:00 12/23/24 08:24 Pantoprazole 40 Mg Tablet PO 01/22/25 08:59 40 mg QDAY KELBY Administration Plan Camilo is a 49 y/o female with PMHx of prediabetes, chronic anemia, menorrhagia who is admitted for acute blood loss anemia secondary to menorrhagia. #Symptomatic anemia #Acute blood loss anemia #Chronic microcytic anemia secondary to #Chronic perimenopausal menorrhagia #Hematuria -Anemia microcytic in nature, Hgb 5.4, MCV 51 -Patient not having hemoptysis, blood in stool -Source of bleeding at this time is periods, likely as patient has chronic menorrhagia -Patient to get 2 PRBCs now -Patient will need further workup for menorrhagia from TOBACCO WAREHOUSE MANAGER -+3 Blood and RBCs seen in UA, however pt denies having blood in urine -Pt is currently on menstrual cycle -Pelvic ultrasound: Diffusely enlarged uterus but no discrete uterine mass Plan: ? TOBACCO WAREHOUSE MANAGER consulted, appreciate recs ? Ordered additional 1 PRBC ? Follow-up posttransfusion H&H ? Iron panel: Iron 9, TIBC 428, iron saturation 2 L, unsaturated iron binding 419 -Vitamin B12 439, folate 18.09 ? Avoid NSAIDs including ibuprofen, aspirin ? Protonix ? SCDs ? Beta-hCG -1 #History of prediabetes Plan: ? Follow-up A1c, TSH and lipid panel #Health Maintenance Disposition: [facility] DVT prophylaxis: SCDs GI prophylaxis: Protonix Diet: Regular CODE STATUS: Full Assessment and plan discussed with my senior resident Dr. Dillon & attending physician Dr. Max Oakes (PGY-1)- Internal medicine resident Attending Provider Attestation/Addendum Patient is 49-year-old female who was admitted for symptomatic anemia secondary to postmenopausal menorrhagia. Patient reports no excessive vaginal bleeding today during my evaluation. Patient received PRBC. Continue to monitor hemoglobin and hematocrit. I discussed with and supervised the resident physician who took care of this patient. I agree with the assessment and plan as above.
[2024-12-23 10:13] LABS: Misc Send Out* See Sep Rpt
--- NOTE | 2024-12-23 10:23 | PC.SS ---
Patient Camilo Woodall is a 49 Year old female admitted for Acute Blood Loss Anemia. SS met with patient at bedside to discuss discharge plan. Patient reports she lives at home with her children, she identifies her daughter, Krystle Tate as her surrogate decision maker [phone]. Patient report she does not utilize any source of DME to assist with ambulation. Choice of pharmacy is [facility] in [place]. At time of discharge the patient's wish is to return back home. Family will provide transportation. Next of kin, Daughter, Krystle Tate [phone] Discharge plan, Home
[2024-12-23 13:55] LABS: Hematocrit 31.2 % (36.0-46.0); Hemoglobin 9.3 g/dL (12.0-16.0)
[2024-12-23 14:37] LABS: Iron 9 mcg/dL (50-170)
[2024-12-23 14:59] LABS: Percent Iron Saturation 2 % (20-55); Total Iron Binding Capacity 428 mcg/dL (250-425); Unsaturated Iron Binding 419 (225-295)
[2024-12-24] VITALS: BP 132/80; PULSE 66; PULSE 74; RESP 18; TEMP 37.2; O2SAT 98
--- NOTE | 2024-12-24 03:39 | PC.NURSE ---
computer downtime from 0200 to 0300 a.m.
[2024-12-24 04:00] VITALS: BP 133/85; PULSE 68; RESP 18; TEMP 36.4; O2SAT 98
[2024-12-24 05:25] LABS: Basophils % (Auto) 1 % (0-2.5); Eosinophils # (Auto) 0.1 Thou/mm3 (0.0-0.5); Eosinophils % (Auto) 2 % (0-10); Hematocrit 31.4 % (36.0-46.0); Hemoglobin 9.3 g/dL (12.0-16.0); Immature Granulocytes % (Auto) 0 % (0-0); Immature Granulocytes Auto 0.01 Thou/mm3 (0.00-0.00); Lymphocytes % (Auto) 39 % (10-50); Mean Corpuscular HGB Conc 29.6 g/dl (31.0-37.0); Mean Corpuscular Hemoglobin 18.5 pg (25.0-35.0); Mean Corpuscular Volume 62 fL (80-100); Monocytes # (Auto) 0.4 Thou/mm3 (0.0-0.8); Monocytes % (Auto) 8 % (0-12); Neutrophils # (Auto) 2.6 Thou/mm3 (1.8-7.7); Neutrophils % (Auto) 50 % (37-80); Nucleated Red Blood Cell % 0 /100 WBC (0); Platelet Count 410 Thou/mm3 (140-440); Red Blood Count 5.03 Miln/mm3 (4.00-5.20); White Blood Count 5.1 Thou/mm3 (3.6-11.0)
[2024-12-24 05:30] VITALS: PULSE 67
[2024-12-24 05:45] LABS: Partial Thromboplastin Time 23.5 Seconds (22.0-36.0); Prothrombin Time 11.4 Seconds (9.0-12.2)
[2024-12-24 06:24] LABS: Alanine Aminotransferase < 7 U/L (10-49); Albumin, Serum 4.1 gm/dL (3.5-5.0); Albumin/Globulin Ratio 1.4 (1.2-2.2); Alkaline Phosphatase 61 U/L (46-116); Anion Gap 8 (7-16); Aspartate Amino Transferase 11 U/L (0-34); BUN/Creatinine Ratio 18 Ratio (12-20); Bilirubin,Total 0.6 mg/dL (0.3-1.2); Blood Urea Nitrogen 14 mg/dL (9-23); Carbon Dioxide 23.6 mMol/L (20.0-31.0); Chloride 109 mMol/L (98-107); Creatinine (Component) 0.8 mg/dL (0.6-1.3); Estimated Creatinine Clearance 63.9 mL/min (>60); Glucose 99 mg/dL (74-106); Osmolality,Calculated 281 (275-295); Potassium 3.8 mMol/L (3.4-5.1); Sodium 141 mMol/L (136-145); Total Protein 7.1 gm/dL (5.7-8.2); eGFR > 60 See Note
[2024-12-24 08:00] VITALS: BP 123/74; PULSE 66; RESP 16; TEMP 36.7; O2SAT 99
[2024-12-24] MEDS: PANTOPRAZOLE 40 MG TABLET PO (08:04)
--- NOTE | 2024-12-24 13:27 | PD.RESDS ---
Planned Discharge Date 12/24/24 DS: Providers Provider Date of admission: 12/23/24 02:22 Primary care physician: Physician No Primary/Family Admitting Provider: Myriam Bass MD Attending Provider on Admission: Carlito Bravo DO Consults: 12/23/24 02:25 Consult to Obstetrics Stat Comment: Consulting Provider: Umu Frank Attending Provider on DC: Ketty Oakes MD Discharging Provider: Ketty Oakes MD DS: Diagnosis Problem List Completed Was Problem List Reviewed/Reconciled?: Yes Hospital Course Hospital Course Hospital course: Ms. Woodall is a 49 year old female past medical history significant for chronic anemia and menorrhagia presented to [facility] 12/23/24 due to weakness secondary to menorrhgia. On admission pt was found to have hemoglobin of 5.4, Pt was transfused 3 units of pRBCs. Obgyn was consulted during the pt's hospital admission and pelvic ultrasound showed diffusely enlarge uterus but no discrete uterine mass. EKG findings were consistent with sinus rhythm without ST or T wave changes. Pt's repeat hemoglobin post transfusions was found to be 9.3. OBGYN recommended Pt follow up outpatient with OBGYN for endometrial biopsy to rule out endometrial hyperplasia/neoplasia. OBGYN also recommended to take tranexamic acid during menses and diet consuming iron rich foods. Pt is recommended to update pap, mammogram and colonoscopy. Pt is hemodynally and clinically stable to be discharge home to self care. Pt is advised to promptly return to the ED if symptoms recoccur or worsen. Discharge Recommendations Take tranexamic acid 1300 mg 3 times daily during monthly menstruation up to 5 days Take ferrous sulfate 325 mg twice daily, you might notice black discoloration stool which is a possible effect of iron Take docusate sodium 100 mg twice daily for constipation as iron tablets causes constipation Take home medications as prescribed Follow-up with PCP as outpatient within a week Follow-up with WELFARE ADMINISTRATOR as outpatient after getting referral from PCP In case of emergency or worsening signs symptoms, call 911 or come back to the ED Hospitalization Diagnosis #Symptomatic anemia- improved #Acute blood loss anemia #Chronic microcytic anemia secondary to #Chronic perimenopausal menorrhagia #Hematuria Assessment and plan discussed with my attending physician Dr. Lawrence Oakes (PGY-1)- Internal medicine resident Time Spent with Patient Time attestation: Total time spent providing and/or coordinating discharge services: Exam Vital Signs Temp Pulse Resp BP Pulse Ox O2 Del Method O2 Flow Rate 98.1 F 66 16 123/74 99 Room Air 85 12/24/24 08:00 12/24/24 08:00 12/24/24 08:00 12/24/24 08:00 12/24/24 08:00 12/24/24 08:00 12/23/24 09:28 Narrative Exam GENERAL: A&Ox3 . Awake, Not in acute distress NEURO: no focal neurological deficits HEENT: Atraumatic, Normocephalic. mucous membranes moist. Eyes open, symmetrical, & clear HEART: Normal Heart Sounds LUNGS: Clear to auscultation with no wheezing or crackles. ABDOMEN: soft, non-distended, non-tender, no guarding or rebound tenderness SKIN: No Rash or ecchymoses EXTREMITIES: No edema, tenderness, able to move all 4 extremities, pedal pulses palpated Discharge Plan Plan Patient Disposition: HOME (Self Care) Patient condition on transfer: Stable Care Plan Goals: Take tranexamic acid 1300 mg 3 times daily during monthly menstruation up to 5 days Take ferrous sulfate 325 mg twice daily, you might notice black discoloration stool which is a possible effect of iron Take docusate sodium 100 mg twice daily for constipation as iron tablets causes constipation Take home medications as prescribed Follow-up with PCP as outpatient within a week Follow-up with WELFARE ADMINISTRATOR as outpatient after getting referral from PCP In case of emergency or worsening signs symptoms, call 911 or come back to the ED Prescriptions/Referrals Prescriptions/Med Rec: New tranexamic acid 650 mg tablet 1,300 mg PO TID 90 Days Qty: 90 0RF Rx Instructions: Take 1300mg by mouth 3 times daily for up to 5 days during monthly menstruation docusate sodium [Colace] 100 mg capsule 100 mg PO BID Qty: 60 0RF ferrous sulfate 325 mg (65 mg iron) tablet,delayed release (DR/EC) 325 mg PO QDAY Qty: 90 0RF Referrals: No Primary/Family,Physician [Primary Care Provider] - Umu Frank MD [Physician] - Patient/Caregiver Discharge Instructions Discharge Activity: activity as tolerated Other Discharge Diet Instructions: Regular diet, increase iron-rich foods Education Materials: Anemia, Endometrial Biopsy, ED Heavy Menstrual Bleeding Print Language: Urdu Activity Restrictions/Additional Instructions: Follow up with OBGYN within 1 month for endometrial biopsy as discussed. Stand Alone Forms: [facility] Award Info., Patient Portal Info Letter Discharge Order Discharge Orders: Discharge (Routine); Ordered 12/24/24 Ordered By: Dayron Dillon Quality Discharge Quality Measures none MD Attestestation MD Attestation I have discussed and was present for the essential components of the discharge history, physical examination, diagnosis, and discharge treatment plan with the resident. I agree with the patient's discharge care as documented by the resident and amended herein by me. Carl Bravo, . The patient understood all discharge instructions, all questions were answered satisfactorily. The patient was instructed to return to the Emergency Department is symptoms worsened or persisted. At time of discharge. Patient was stable, afebrile, tolerating p.o. intake and ambulatory at time of discharge. Although this document has been carefully reviewed, there may still be some phonetic and other typographical errors. These errors are purely grammatical due to imperfections in the software program and should not be construed in any way to compromise the substance of the patient's medical care during this visit.
== END 2024-12-24 11:04 | disposition home or self-care (01) | DRG 532 ==
LOC: SERX 12-23 01:21 → SERHOLD 12-23 02:44 → S3NX 12-23 04:43
PROVIDERS: Admitting Provider Student in an Organized Health Care Education/Training Program; Emergency Provider Emergency Medicine; Visit Provider Internal Medicine
DX: N92.4 Excessive bleeding in the premenopausal period (principal); D62 Acute posthemorrhagic anemia; R73.03 Prediabetes; N85.2 Hypertrophy of uterus; R00.0 Tachycardia, unspecified; K21.9 Gastro-esophageal reflux disease without esophagitis
CPT/HCPCS: 36415; 36430; 70450; 71046; 76856; 80053; 80061; 80307; 81001; 82607; 82746; 83036; 83540; 83550; 83735; 83880; 84100; 84443; 84484; 84702; 85014; 85018; 85025; 85610; 85730; 86850; 86900; 86901; 86923; 93005; 93225; 99285; P9016; A9270